=== PATIENT | male | born 1935 | race African-American/Black ===

== ENCOUNTER 2017-12-31 18:39 | Emergency (ER) | payer OTHER ==
[~2017-12-31] VITALS: Ht 167.6 cm; Wt 68.0 kg
--- NOTE | ~2017-12-31 | EKG ---
[address] [place] [address] ELECTROCARDIOGRAM REPORT Name: JSOE CORNEJO Room #: [facility]#: [id number] Admission: 12/31/17 Attend Phys: Discharge: 12/31/17 Date of : 31 Report #: [id number] THIS REPORT FOR: //name// [facility] ED Test Date: 2017-12-31 Test Time: 18:46:17 Pat Name: JOSE CORNEJO Department: Room: Gender: M Trial [employer]: MZOOK : 1935 Requested By: Mere Ray Order Number: [id number] MD: Gildardo Hood Measurements Intervals [place] Rate: 76 P: -1 PA: 149 QRS: 19 QRSD: 85 T: 93 QT: 351 QTc: 395 Interpretive Statements Sinus rhythm Nonspecific T abnormalities, lateral leads Compared to ECG 11/02/2015 08:49:13 No significant changes Electronically Signed On 01-01-2018 8:50:25 [employer] by Gildardo Hood [email or web address] <ELECTRONICALLY SIGNED> By: Gildardo Hood MD, [facility] 01/01/18 0850 D: [id number] Gildardo Hood MD, FAC /EPI
[~2017-12-31 18:39] MED LIST: ASPIR 8181 MG PO; CIPROFLOXACIN500 M1 PO; DIABETIC MEDS; HYDRALAZINE 2525 MG PO; IBUPROFEN 400400 M1 PO; LANTUS100 UNIT/M SUBQ; LIPITOR 20 MG T20 M1 PO; NAPROSYN250 MG PO; NORCO 5-325 TA1 EACH PO; NOVOLOG100 UNIT/1 SUBQ; PRINIVIL20 MG PO; TYLENOL325 MG PO; VALIUM2 MG PO; VITAMIN D1000 UNI1 PO
[2017-12-31 19:25] LABS: HEMATOCRIT 35.8 % (42.0-52.0); HEMOGLOBIN 12.2 gm/dL (14.0-18.0); MCH 32.7 pg (26.0-34.0); MCHC 34.1 g/dL (28.0-37.0); MCV 95.8 fL (80.0-100.0); PLATELET COUNT 171 thou/uL (150-400); RBC 3.74 mil/uL (4.50-6.00); WBC 4.6 thou/uL (4.0-11.0)
[2017-12-31 19:34] LABS: ANION GAP 9 mmol/L (7-16); BUN 36 mg/dL (7-18); CALCIUM 9.6 mg/dL (8.5-10.1); CHLORIDE 97 mmol/L (98-107); CO2 26 mmol/L (21-32); CREATININE 2.5 mg/dL (0.7-1.3); GLUCOSE 307 mg/dL (74-106); POTASSIUM 4.2 mmol/L (3.5-5.1); SODIUM 132 mmol/L (136-145)
[2017-12-31 19:44] LABS: TROPONIN-I < 0.04 ng/mL (<0.06)
[2017-12-31 19:53] LABS: ABSOLUTE NEUTROPHILS 2.1 thou/uL (1.4-8.2)
[2017-12-31] MEDS ORDERED: NORCO 5-325 TA1 EACH PO (20:14)
== END 2017-12-31 20:46 | disposition home or self-care (01) ==
LOC: ER 18:39
PROVIDERS: Emergency Medicine
DX: M54.5 Low back pain (principal); R53.1 Weakness; R09.1 Pleurisy; Z85.46 Personal history of malignant neoplasm of prostate

== ENCOUNTER 2018-04-22 15:06 | Emergency (ER) | payer OTHER ==
[~2018-04-22] VITALS: Ht 167.6 cm; Wt 113.4 kg
[2018-04-22 15:13] VITALS: BP 173/91
[2018-04-22] MEDS ORDERED: FLEXERIL PO (15:35)
== END 2018-04-22 16:02 | disposition home or self-care (01) ==
LOC: ER 15:06
DX: S16.1XXA Strain of muscle, fascia and tendon at neck level, initial encounter (principal); S46.812A Strain of other muscles, fascia and tendons at shoulder and upper arm level, left arm, initial encounter; E11.9 Type 2 diabetes mellitus without complications; Z85.46 Personal history of malignant neoplasm of prostate; X50.1XXA Overexertion from prolonged static or awkward postures, initial encounter; Y93.89 Activity, other specified; Y92.89 Other specified places as the place of occurrence of the external cause; Y99.8 Other external cause status

== ENCOUNTER 2020-01-22 06:12 | Emergency (ER) | payer OTHER ==
[~2020-01-22] VITALS: Ht 167.6 cm; Wt 72.6 kg
[~2020-01-22 06:12] MED LIST changes: +FLEXERIL PO
[2020-01-22 07:32] LABS: URINE BILIRUBIN NEGATIVE (Negative); URINE BLOOD 3+ (Negative); URINE CLARITY CLOUDY; URINE COLOR YELLOW; URINE GLUCOSE-RANDOM* NEGATIVE (Negative); URINE KETONES NEGATIVE (Negative); URINE NITRITE-REFLEX NEGATIVE (Negative); URINE PROTEIN (DIPSTICK) 2+ (Negative); URINE SPECIFIC GRAVITY 1.015 (1.005-1.035); URINE UROBILINOGEN 0.2 E.U./dl (0.2-1.0)
[2020-01-22 07:36] LABS: URINE LEUKOCYTES-REFLEX 3+ (Negative)
[2020-01-22 07:39] LABS: URINE WBC-REFLEX >25 Many /HPF (0-5)
[2020-01-22 07:40] LABS: BACTERIA-REFLEX 1-9 Few /HPF (None Seen); CASTS None Seen /LPF (None Seen); CRYSTALS None Seen /LPF (None Seen); SQUAMOUS None Seen /LPF (0-3); URINE RBC 3-10 Few /HPF (0-2)
[2020-01-22] MEDS ORDERED: CIPROFLOXACIN500 M1 PO (08:28)
[2020-01-22 08:45] VITALS: BP 117/64
== END 2020-01-22 08:47 | disposition home or self-care (01) ==
LOC: ER 06:12
PROVIDERS: Emergency Medicine
DX: T83.511A Infection and inflammatory reaction due to indwelling urethral catheter, initial encounter (principal); Y92.89 Other specified places as the place of occurrence of the external cause; Y84.8 Other medical procedures as the cause of abnormal reaction of the patient, or of later complication, without mention of misadventure at the time of the procedure